=== PATIENT | male | born 1965 | race Caucasian/White ===

== ENCOUNTER 2023-02-11 18:20 | Emergency (ER) | payer OTHER, SELFPAY ==
[2023-02-11 18:50] VITALS: BP 153/82; PULSE 88; RESP 16; TEMP 36.7; O2SAT 96
--- NOTE | 2023-02-11 18:52 | ED.LOWEXIN ---
HPI - Extremity Injury (Lower) General Chief Complaint: Extremity Injury, Lower Stated Complaint: Feet Irritation History of Present Illness HPI Narrative: Pt is a 57 y/o male, PMHx of autism, presents to with bilateral feet rash, onset several months ago, with toe nails that are overgrown and discolored. He denies associated pain or pruritus. 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 He has no other complaints. He is brought by his uncle who noticed his feet and felt he required treatment imminently, prompting his visit. Related Data Allergies Allergy/AdvReac Type Severity Reaction Status Date / Time No Known Allergies Allergy Verified 02/11/23 18:47 Review of Systems Musculoskeletal: Musculoskeletal: Reports as per HPI Integumentary/Breasts: Skin/Breast: Reports as per HPI [facility] Past Medical History Medical History Acquired polycythemia Cerebral palsy Chronic kidney disease, stage 2 (mild) Epilepsy HTN (hypertension) Hyperlipidemia Intellectual disability Morbid (severe) obesity due to excess calories Stage 3a chronic kidney disease Vitamin D deficiency Family History Family History Mother Hypertension Arthritis Father No problems noted. Other Carcinoma of colon maternal grandfather Social History Social History Smoking status: Never smoker Second hand tobacco smoke exposure: No Alcohol intake: never Substance use: never Substance use type: does not use Living arrangements: with family Occupation/Education: other Gender identity (if verbalized by the patient): Male Sexual Orientation (if Verbalized by the Patient): Straight or Heterosexual Exam Const: General: healthy appearing and no acute distress Nutritional Appearance: well nourished Orientation/consciousness: patient oriented x3 Limitations: no limitations and other limitations (autism, child like disposition, pleasant, answers questions well) HENMT: Head: normal to inspection Ears: external ears normal and TM's normal bilaterally Face/Nose/Sinus: Normal external nose present and Normal nares present Face and sinus: normal facial exam Mouth: Yes Normal oral and palatal mucosa present and Yes lip normal Teeth and gingiva: dentition normal Throat: posterior oropharynx normal and uvula midline Eyes: Conjunctivae: conjunctivae normal EOM: EOMs intact bilaterally Neck: Neck: normal visual inspection and no lymphadenopathy Chest: Chest palpation & inspection: normal inspection of the chest Resp: Effort & Inspection: normal respiratory effort Auscultation: clear to auscultation bilaterally Cardio: Rate: regular rate Rhythm: regular rhythm Back/Spine/Pelvis: Back: no CVA tenderness Skin: General skin exam: normal color Other: pt has scaly rash eruption to the dorsal aspect of all toes and in the interdigital spaces. No erythema or tenderness. No swelling. The toe nail plates are diffusely hypertrophied, overgrown and yellow. No bleeding, lymphangitis. No other rash eruption noted to skin surfaces otherwise. Neuro: General: patient oriented x3, moves all extremities, no meningeal signs, no focal motor deficits and CN's II-XI intact bilaterally Cranial nerves: Yes Nystagmus not present Speech: normal speech Gait exam (Neuro): Normal gait present Course Course Emergency Course: skin changes appear chronic. No evidence of cellulitis noted. Plan to treat with topical antifungal, podiatry referral Level of Care: Express Care Visit ([id number]) Vital Signs Vital signs: Vital Signs Temperature 36.7 C 02/11/23 18:50 Pulse Rate 88 02/11/23 18:50 Respiratory Rate 16 02/11/23 18:50 Blood Pressure 153/82 H 02/11/23 18:50 Pulse Oximetry 96 02/11/23 18:50 Oxygen Delive
== END 2023-02-11 19:10 | disposition home or self-care (01) ==
PROVIDERS: Emergency Provider Nurse Practitioner Family; PCP Family Medicine
DX: B35.1 Tinea unguium (principal); B35.3 Tinea pedis; F84.0 Autistic disorder; I12.9 Hypertensive chronic kidney disease with stage 1 through stage 4 chronic kidney disease, or unspecified chronic kidney disease; N18.31 Chronic kidney disease, stage 3a; G80.9 Cerebral palsy, unspecified; G40.909 Epilepsy, unspecified, not intractable, without status epilepticus; E78.5 Hyperlipidemia, unspecified; E66.01 Morbid (severe) obesity due to excess calories; Z68.34 Body mass index [BMI] 34.0-34.9, adult
CPT/HCPCS: 99213; G0463

== ENCOUNTER 2024-04-04 14:33 | Emergency (ER) | payer OTHER, SELFPAY ==
[2024-04-04 14:42] VITALS: BP 157/87; PULSE 74; RESP 16; TEMP 36.6; O2SAT 100
--- NOTE | 2024-04-04 15:06 | ED.EAR ---
HPI - Ear Problem General Chief complaint: Ear Stated complaint: Both Ears Irritation Time Seen by Provider: 04/04/24 14:35 Source: patient Mode of arrival: ambulatory Limitations: no limitations History of Present Illness HPI Narrative: Jason is a 58-year-old male patient presenting to the clinic today with complaints of bilateral ears popping, feeling clogged, and ringing at times. Mother reports that this has been going on for several weeks. He denies any otalgia Related Data Allergies Allergy/AdvReac Type Severity Reaction Status Date / Time No Known Allergies Allergy Verified 11/08/23 08:52 Review of Systems Review of Systems: Pertinent positives per HPI. Patient denies any fever, chills, rash, headache, visual changes, dizziness, cough, runny nose, sore throat, shortness of breath, chest pain, palpitations, nausea, vomiting, diarrhea, constipation, abdominal pain, or any urinary issues. [facility] Past Medical History Medical History Acquired polycythemia Cerebral palsy Chronic kidney disease, stage 2 (mild) Epilepsy HTN (hypertension) Hyperlipidemia Intellectual disability Morbid (severe) obesity due to excess calories Stage 3a chronic kidney disease Vitamin D deficiency Family History Family History Mother Hypertension Arthritis Father No problems noted. Other Carcinoma of colon maternal grandfather Social History Social History Social History: Single Smoking status: Never smoker Second hand tobacco smoke exposure: No Alcohol intake: never Substance use: never Substance use type: does not use Do You Feel Safe in your Home?: Yes Lack of Transportation: No Lack of Food: Never True Current Housing: I Have Housing Concerned About Future Housing: No Difficulty Paying Gas/Electric Bills: No Difficulty Paying for Meds: No Currently Unemployed: YES Education: Don't Know Difficulty w/ Childcare or Family Care: No Living arrangements: with family Occupation/Education: unemployed Additional occupation/education comments: Disability Gender identity (if verbalized by the patient): Male Sexual Orientation (if Verbalized by the Patient): Straight or Heterosexual Comments At the time of my signature, I reviewed and agree with the nursing past medical, surgical, social, and family history. There is no relevant family history pertinent to the patient complaint. Exam Narrative: General: Well-developed, well nourished, in no apparent distress Head: Normocephalic, atraumatic Eyes: Pupils equally round and reactive to light bilaterally, EOM intact, sclera and conjunctive clear, no discharge, lids normal Ears: Bilateral cerumen impaction, TMs intact and clear, ear irrigation performed, ear canals clear, no drainage, grossly hearing normal. Nose: Nares patent, no discharge, no inflammation, no sinus tenderness. Mouth: Oropharynx without lesions or masses, good dentition, MMM. Neck: Supple, trachea midline, no enlargement of anterior or posterior cervical nodes, no thyroid masses or goiter palpable. Cardio: Regular rate and rhythm, s1 and s2 normal, no murmur appreciated. Resp: Clear to auscultation bilaterally anteriorly and posteriorly, no rhonchi, rales, wheezing or rubs Course Course Emergency Course: Portions of this record may have been created with voice recognition software. Level of Care: Express Care Visit Vital Signs Vital signs: Vital Signs Temperature 36.6 C 04/04/24 14:42 Pulse Rate 74 04/04/24 14:42 Respiratory Rate 16 04/04/24 14:42 Blood Pressure 157/87 H 04/04/24 14:42 Pulse Oximetry 100 04/04/24 14:42 Oxygen Delivery Room Air 04/04/24 14:42 Temperature 36.6 C 04/04/24 14:42 Pulse Rate 74 04/04/24 14:42 Respiratory Rate 16 04/04/24 14:42 Blood Pressure 157/87 H 04/04/24 14:42 Pulse Oximetry 100 04/04/24 14:42 Oxygen Delivery Room Air 04/04/24 14:42 Vital signs reviewed Procedures Ear Wax Removal Both Ears: Ear Wax Removal Date: 04/04/24 Results: Re-examined: cerumen removed completely TM Examination: TM(s) intact, normal appearance Ear Canal Exam: atraumatic Patient Tolerated Procedure: well and no complications Complications: no problems Technique: ear canal irrigated and ear canal curetted Additional Comments: Verbal consent obtained for ear irrigation. Risk and benefits explained and patient voiced understanding. Ear irrigation performed using an elephant ear and spray water bottle. Mixture of 1/2 peroxide 1/2 water used to irrigate ear canal. Lighted curette was used to remove cerumen from the external ear canal Cerumen impaction cleared and TM visualized without redness. Grossly hearing normal. Patient tolerated procedure well Medical Decision Making MDM Narrative Medical decision making narrative: At the time of visit patient is resting comfortably on the exam table. Patient appears to be nontoxic. Procedures: Ear irrigation was performed bilaterally. Ear irrigation was successful. Plan: Patient had bilateral cerumen impaction. Ear irrigation was performed successfully and patient's symptoms improved. Supportive measures were discussed with the patient and they voiced understanding discharge instructions and agrees to treatment plan. Return precautions reviewed Differential Diagnosis Differential Diagnosis: Otitis media, otitis externa, eustachian tube dysfunction, cerumen impaction, upper respiratory infection, serous otitis Vital Signs Vital Signs: Vital Signs Temperature 36.6 C 04/04/24 14:42 Pulse Rate 74 04/04/24 14:42 Respiratory Rate 16 04/04/24 14:42 Blood Pressure 157/87 H 04/04/24 14:42 Pulse Oximetry 100 04/04/24 14:42 Oxygen Delivery Room Air 04/04/24 14:42 Temperature 36.6 C 04/04/24 14:42 Pulse Rate 74 04/04/24 14:42 Respiratory Rate 16 04/04/24 14:42 Blood Pressure 157/87 H 04/04/24 14:42 Pulse Oximetry 100 04/04/24 14:42 Oxygen Delivery Room Air 04/04/24 14:42 Discharge Plan Discharge Clinical Impression: Bilateral impacted cerumen Patient Disposition: Home, Self-Care Condition: Stable Instructions: Antibiotic Form Additional Instructions: Ear irrigation was performed in the clinic today successfully Follow-up as needed Prescriptions: No Action buspirone 5 mg tablet 5 mg PO BID Qty: 180 1RF lamotrigine 100 mg tablet See Rx Instructions .ROUTE .COMPLEX Qty: 450 1RF Dose Instruction: TAKE 3 TABLETS BY MOUTH TWICE A DAY Rx Instructions: TAKE 3 TABLETS BY MOUTH IN AM AND 2 TABLETS AT NIGHT propranolol 20 mg tablet See Rx Instructions .ROUTE .COMPLEX Qty: 180 1RF Dose Instruction: TAKE 1 TABLET BY MOUTH EVERY 12 HOURS Rx Instructions: TAKE 1 TABLET BY MOUTH EVERY 12 HOURS Follow-up/Referrals: Luly Godwin MD [Primary Care Provider] - Time of Disposition: 15:06 Quality NIHSS Nursing Documentation ED NIHSS nursing documentation: reviewed/agree
== END 2024-04-04 15:08 | disposition home or self-care (01) ==
PROVIDERS: Emergency Provider Nurse Practitioner Family; PCP Family Medicine
DX: H61.23 Impacted cerumen, bilateral (principal); I12.9 Hypertensive chronic kidney disease with stage 1 through stage 4 chronic kidney disease, or unspecified chronic kidney disease; N18.31 Chronic kidney disease, stage 3a
CPT/HCPCS: 69210; 99212; A9270; G0463